=== PATIENT | female | born 1990 | race African-American/Black ===

== ENCOUNTER → 2016-11-28 | Outpatient (CLI) | payer MEDICAID ==
[~2016-11-28] VITALS: Ht 175.3 cm; Wt 165.1 kg
[~2016-11-28] MED LIST: GLUCOPHAGE500 MG/TAB PO
[2016-11-28 09:40] VITALS: BP 124/61; PULSE 76
[2016-11-28 11:09] VITALS: BP 124/61; PULSE 76
[2016-11-28 11:45] VITALS: BP 124/61; PULSE 76
== END ==
LOC: LIGHT 09:30
DX: E11.9 Type 2 diabetes mellitus without complications (principal); F32.89 Other specified depressive episodes; E66.01 Morbid (severe) obesity due to excess calories; Z68.43 Body mass index [BMI] 50.0-59.9, adult; M54.5 Low back pain

== ENCOUNTER → 2016-12-04 | Outpatient (CLI) | payer MEDICAID ==
[~2016-12-04] VITALS: Ht 175.3 cm; Wt 165.6 kg
== END ==
LOC: LIGHT 08:44
DX: E11.9 Type 2 diabetes mellitus without complications (principal); F32.89 Other specified depressive episodes; E66.01 Morbid (severe) obesity due to excess calories; Z68.43 Body mass index [BMI] 50.0-59.9, adult; M54.5 Low back pain

== ENCOUNTER → 2016-12-26 | Outpatient (CLI) | payer MEDICAID ==
[~2016-12-26] VITALS: Ht 175.3 cm; Wt 165.6 kg
[2016-12-26 14:02] VITALS: BP 152/81; PULSE 76
[2016-12-26 17:12] VITALS: BP 152/81; PULSE 76
== END ==
LOC: LIGHT 14:00
DX: E11.9 Type 2 diabetes mellitus without complications (principal); F32.89 Other specified depressive episodes; E66.01 Morbid (severe) obesity due to excess calories; Z68.43 Body mass index [BMI] 50.0-59.9, adult; M54.5 Low back pain

== ENCOUNTER → 2017-01-23 | Outpatient (CLI) | payer MEDICAID ==
[~2017-01-23] VITALS: Ht 175.3 cm; Wt 163.7 kg
[2017-01-23 14:40] VITALS: BP 125/67; PULSE 75
== END ==
LOC: LIGHT 13:40
DX: E11.9 Type 2 diabetes mellitus without complications (principal); F32.89 Other specified depressive episodes; E66.01 Morbid (severe) obesity due to excess calories; Z68.43 Body mass index [BMI] 50.0-59.9, adult

== ENCOUNTER → 2017-02-01 | Outpatient (CLI) | payer MEDICAID | LOC: LIGHT 12:35 | DX: E11.9 Type 2 diabetes mellitus without complications (principal); M54.5 Low back pain; F32.89 Other specified depressive episodes; E66.01 Morbid (severe) obesity due to excess calories; Z68.43 Body mass index [BMI] 50.0-59.9, adult ==

== ENCOUNTER → 2017-02-20 | Outpatient (CLI) | payer MEDICAID ==
[~2017-02-20] VITALS: Ht 175.3 cm; Wt 163.3 kg
[2017-02-20 15:18] VITALS: BP 138/75; PULSE 55
== END ==
LOC: LIGHT 15:00
DX: E11.9 Type 2 diabetes mellitus without complications (principal); F32.89 Other specified depressive episodes; E66.01 Morbid (severe) obesity due to excess calories; Z68.43 Body mass index [BMI] 50.0-59.9, adult; M54.5 Low back pain; Z90.49 Acquired absence of other specified parts of digestive tract

== ENCOUNTER → 2017-03-27 | Outpatient (CLI) | payer MEDICAID ==
[~2017-03-27] VITALS: Ht 175.3 cm; Wt 165.3 kg
[2017-03-27 15:04] VITALS: BP 118/55; PULSE 71
== END ==
LOC: LIGHT 09:59
DX: E11.9 Type 2 diabetes mellitus without complications (principal); F32.89 Other specified depressive episodes; E66.01 Morbid (severe) obesity due to excess calories; Z68.43 Body mass index [BMI] 50.0-59.9, adult; M54.5 Low back pain

== ENCOUNTER → 2017-04-30 | Outpatient (CLI) | payer MEDICAID ==
[~2017-04-30] VITALS: Ht 175.3 cm; Wt 166.5 kg
[2017-04-30 17:09] VITALS: BP 126/67; PULSE 69
== END ==
LOC: LIGHT 11:41
DX: E11.9 Type 2 diabetes mellitus without complications (principal); F32.89 Other specified depressive episodes; E66.01 Morbid (severe) obesity due to excess calories; Z68.43 Body mass index [BMI] 50.0-59.9, adult; Z71.3 Dietary counseling and surveillance; M54.5 Low back pain

== ENCOUNTER 2017-07-31 14:06 | Inpatient (IN) | payer MEDICAID ==
[~2017-07-31] VITALS: Ht 175.3 cm; Wt 167.0 kg
[2017-08-15] VITALS (9 sets, daily range): BP systolic 103–164; BP diastolic 56–90; PULSE 55–89; TEMP 97.8–98.9
[2017-08-15] MEDS ORDERED: BIOTIN10000 MC1 PO (12:05)
[2017-08-16 02:03] VITALS: BP 121/34; PULSE 50; TEMP 98.3
[2017-08-16 05:54] VITALS: BP 130/60; PULSE 68; TEMP 98.7
[2017-08-16 09:23] VITALS: PULSE 76; TEMP 98.9
[2017-08-16 09:25] VITALS: BP 126/73
[2017-08-16 14:57] VITALS: BP 138/79; PULSE 86; TEMP 99.2
[2017-08-20] MEDS ORDERED: PRENATAL FORMU1 EAC3 PO (17:48)
== END 2017-08-16 18:15 | disposition home or self-care (01) | DRG 621 ==
LOC: SURG 08-15 10:51 → INPTSU 08-15 10:51 → SURG 08-15 13:30
PROVIDERS: Surgery
PROC: 0DB64Z3 Excision of Stomach, Percutaneous Endoscopic Approach, Vertical (ICD-10-PCS; principal; 2017-08-15 13:30)
DX: E66.01 Morbid (severe) obesity due to excess calories (principal); Z68.43 Body mass index [BMI] 50.0-59.9, adult; E11.9 Type 2 diabetes mellitus without complications; Z79.4 Long term (current) use of insulin; Z79.84 Long term (current) use of oral hypoglycemic drugs
CPT/HCPCS: A9284; J0330; J0360; J0690; J1100; J1170; J1885; J2405; J2550; J2704; J2710; J7120

== ENCOUNTER → 2017-08-07 | Outpatient (CLI) | payer MEDICAID ==
[~2017-08-07] MED LIST changes: +BIOTIN10000 MC1 PO; +PRENATAL FORMU1 EAC3 PO
== END ==
LOC: LIGHT 12:08
DX: Z01.818 Encounter for other preprocedural examination (principal); E66.01 Morbid (severe) obesity due to excess calories; E11.9 Type 2 diabetes mellitus without complications

== ENCOUNTER → 2017-08-13 | Outpatient (CLI) | payer MEDICAID | LOC: LIGHT 08:26 | DX: Z01.818 Encounter for other preprocedural examination (principal); E66.01 Morbid (severe) obesity due to excess calories; E11.9 Type 2 diabetes mellitus without complications ==

== ENCOUNTER → 2017-08-20 | Outpatient (CLI) | payer MEDICAID ==
[~2017-08-20] VITALS: Ht 175.3 cm; Wt 160.6 kg
[2017-08-20 15:52] VITALS: BP 110/74; PULSE 100
== END ==
LOC: LIGHT 09:07
DX: E11.9 Type 2 diabetes mellitus without complications (principal); F32.89 Other specified depressive episodes; E66.01 Morbid (severe) obesity due to excess calories; Z68.43 Body mass index [BMI] 50.0-59.9, adult; Z71.3 Dietary counseling and surveillance; M54.5 Low back pain

== ENCOUNTER → 2017-09-17 | Outpatient (CLI) | payer MEDICAID ==
[~2017-09-17] VITALS: Ht 175.3 cm; Wt 152.9 kg
[~2017-09-17] MED LIST changes: +PRENATAL PO
[2017-09-17 15:29] VITALS: BP 120/70; PULSE 68
== END ==
LOC: LIGHT 10:12
DX: E11.9 Type 2 diabetes mellitus without complications (principal); F32.89 Other specified depressive episodes; E66.01 Morbid (severe) obesity due to excess calories; Z68.42 Body mass index [BMI] 45.0-49.9, adult; Z71.3 Dietary counseling and surveillance; M54.5 Low back pain

== ENCOUNTER → 2018-01-07 | Outpatient (CLI) | payer MEDICAID ==
[~2018-01-07] VITALS: Ht 175.3 cm; Wt 129.5 kg
[2018-01-07 16:57] VITALS: BP 104/64; PULSE 72
== END ==
LOC: LIGHT 11-26 09:33
DX: E11.9 Type 2 diabetes mellitus without complications (principal); F32.89 Other specified depressive episodes; E66.01 Morbid (severe) obesity due to excess calories; Z68.41 Body mass index [BMI] 40.0-44.9, adult; Z71.3 Dietary counseling and surveillance; M54.5 Low back pain
CPT/HCPCS: G0463

== ENCOUNTER 2018-03-19 16:35 | Emergency (ER) | payer SELFPAY ==
[~2018-03-19] VITALS: Ht 180.3 cm; Wt 116.4 kg
[2018-03-19 16:43] VITALS: BP 117/64; TEMP 98.3
[2018-03-19 19:07] VITALS: PULSE 55
== END 2018-03-19 19:09 | disposition home or self-care (01) ==
LOC: COL.ER 16:35
DX: R07.89 Other chest pain (principal); F17.210 Nicotine dependence, cigarettes, uncomplicated; Z98.890 Other specified postprocedural states; Z90.49 Acquired absence of other specified parts of digestive tract; X50.0XXA Overexertion from strenuous movement or load, initial encounter
CPT/HCPCS: J1885

== ENCOUNTER 2018-03-24 17:45 | Emergency (ER) | payer SELFPAY ==
[~2018-03-24] VITALS: Ht 180.3 cm; Wt 120.5 kg
[2018-03-24 17:51] VITALS: BP 126/64; TEMP 97.2
[2018-03-24 18:53] VITALS: PULSE 57
== END 2018-03-24 18:53 | disposition home or self-care (01) ==
LOC: COL.ER 17:45
DX: R07.9 Chest pain, unspecified (principal); X50.0XXA Overexertion from strenuous movement or load, initial encounter; Y92.89 Other specified places as the place of occurrence of the external cause; Y99.0 Civilian activity done for income or pay
CPT/HCPCS: J1885

== ENCOUNTER 2018-03-26 08:05 | Outpatient (RCR) | payer OTHER | END 2018-03-27 14:59 | disposition home or self-care (01) | LOC: WSOH 08:05 | DX: K21.9 Gastro-esophageal reflux disease without esophagitis (principal); F17.210 Nicotine dependence, cigarettes, uncomplicated ==

== ENCOUNTER 2018-05-08 19:34 | Emergency (ER) | payer MEDICAID ==
[~2018-05-08] VITALS: Ht 182.9 cm; Wt 115.0 kg
[2018-05-08 19:46] VITALS: BP 126/88; TEMP 98.3
[2018-05-08 21:33] VITALS: PULSE 64
== END 2018-05-08 21:33 | disposition home or self-care (01) ==
LOC: COL.ER 19:34
DX: J20.9 Acute bronchitis, unspecified (principal); E11.9 Type 2 diabetes mellitus without complications; F17.210 Nicotine dependence, cigarettes, uncomplicated; Z90.49 Acquired absence of other specified parts of digestive tract; Z98.890 Other specified postprocedural states
CPT/HCPCS: J8540

== ENCOUNTER 2019-02-09 15:38 | Emergency (ER) | payer MEDICAID ==
[~2019-02-09] VITALS: Ht 177.8 cm; Wt 113.6 kg
[~2019-02-09 15:38] MED LIST changes: +BACTRIM DS 8001 TAB PO; +CEPHALEXIN500 M1 PO
[2019-02-09 15:57] VITALS: TEMP 99.8
[2019-02-09] MEDS ORDERED: PRENATAL 191 TAB PO (16:09)
[2019-02-09 16:58] LABS: BASO % 0.4 % (0.0-2.0); EOS # 0.1 (0.0-0.7); EOS % 1.6 % (0-4.0); GRAN # 2.5 (1.4-6.5); GRAN % 50.3 % (42.2-75.2); HEMATOCRIT 37.3 % (37.0-47.0); INR 1.1 (0.8-3.0); LYMPH # 2.1 (1.2-3.4); LYMPH % 41.7 % (20.0-51.0); MEAN CELL VOLUME 80 fl (80.0-100.0); MEAN CORPUSCULAR HEMOGLOBIN 26 pg (27.0-31.0); MEAN CORPUSCULAR HGB CONC 32 g/dl (33.0-37.0); MEAN PLATELET VOLUME 9.9 fl (7.4-10.4); MONO # 0.3 (0.1-0.6); MONO % 5.8 % (1.7-9.3); PLATELET COUNT 352 K/mm3 (130-400); PROTHROMBIN TIME 12.7 SECONDS (9.7-12.8); RED BLOOD COUNT 4.64 M/mm3 (4.10-5.30); REDCELL DISTRIBUTION WIDTH-CV 13.2 % (11.5-14.5)
[2019-02-09 17:04] LABS: ALANINE AMINOTRANSFERASE < 6 U/L (9-52); ALBUMIN 3.7 gm/dL (3.5-5.0); ALKALINE PHOSPHATASE 111 U/L (50-136); ANION GAP 6 mmol/L (7-16); AST,SGOT 17 U/L (15-37); BILIRUBIN,TOTAL 0.5 mg/dL (0.0-1.0); BLOOD UREA NITROGEN 13 mg/dL (7-17); CARBON DIOXIDE 26 mmol/L (22-30); CHLORIDE 107 mmol/L (98-107); CREATININE, serum 0.82 mg/dL (0.52-1.25); GLUCOSE 109 mg/dL (74-106); LACTATE DEHYDROGENASE 354 U/L (313-618); POTASSIUM 3.7 mmol/L (3.4-5.0); SODIUM 139 mmol/L (137-145); TOTAL PROTEIN 7.6 gm/dL (6.4-8.2)
[2019-02-09 17:09] LABS: C-REACTIVE PROTEIN < 0.5 mg/dL (0.0-0.9)
[2019-02-09 17:20] LABS: ERYTHROCYTE SEDIMENTATION RATE 11 mm/hr (0-20)
[2019-02-09] MEDS ORDERED: CRUTCHES MC (17:41)
[2019-02-09 18:02] VITALS: BP 122/81; PULSE 60
== END 2019-02-09 18:02 | disposition home or self-care (01) ==
LOC: COL.ER 15:38
PROVIDERS: Emergency Medicine
DX: D49.2 Neoplasm of unspecified behavior of bone, soft tissue, and skin (principal); F17.210 Nicotine dependence, cigarettes, uncomplicated; Z98.890 Other specified postprocedural states
CPT/HCPCS: L1846

== ENCOUNTER 2019-03-28 10:46 | Day surgery (SDC) | payer MEDICAID ==
[~2019-03-28] VITALS: Ht 176.5 cm; Wt 111.4 kg
[2019-03-28] VITALS (9 sets, daily range): BP systolic 119–137; BP diastolic 63–85; PULSE 60–77; TEMP 98.1
--- NOTE | 2019-03-28 08:45 | NUR ---
Returns to room 1 per cart from PACU and is awake and alert. Temp 97.2 and room air sats 93%. IV fluids infusing via 18G RH and site is free of redness. Siderails up x2 and call light in reach. States that she is sleepy and wishes to sleep. Family at side. Allowed to rest.
--- NOTE | 2019-03-28 09:00 | NUR ---
Continues to rest when not disturbed. IV fluids infusing.
--- NOTE | 2019-03-28 09:15 | NUR ---
Drinking water and denies pain.
--- NOTE | 2019-03-28 09:30 | NUR ---
Room air sats 93%. Drinking water and denies need for pain medication.
[~2019-03-28 10:46] MED LIST changes: +CRUTCHES MC; +PRENATAL 191 TAB PO
--- NOTE | 2019-03-28 11:20 | NUR ---
Initial visit; Patient thanked Sterile Supervisor for offering encouragement and prayer prior to her surgical procedure.
[2019-03-28] MEDS ORDERED: VITAMIN B12 781 TAB PO (11:22)
[2019-03-28] MEDS ORDERED: FEOSOL45 MG PO (11:23)
[2019-03-28] MEDS ORDERED: VITAMIN D3400 I1 PO (11:23)
--- NOTE | 2019-03-28 13:28 | NUR ---
Patient returns to room 4 per cart from surgery after having double lumen livingston catheter placed. Site is free of redness. Temp 97.8 and room air sats 99%. IV fluids infusing and site is free of redness. Siderails up x2 and call light in reach. Patient is eating muffin and drinking coke. Denies nausea.
--- NOTE | 2019-03-28 13:43 | NUR ---
Resting and talking with family.
[2019-03-28] MEDS ORDERED: MOTRIN 600600 MG/TAB PO ×2 (13:45→13:58)
[2019-03-28] MEDS ORDERED: PERCOCET 325 MG1 TA2 PO (13:45)
[2019-03-28] MEDS ORDERED: COLACE 100100 MG/CAP PO (13:46)
--- NOTE | 2019-03-28 13:58 | NUR ---
Resting and room air sats 98%. Johns site free of drainage or swelling. Tegaderm dressing dry and intact.
--- NOTE | 2019-03-28 14:13 | NUR ---
Assisted up to the bathroom and uses crutches to ambulate. Patient is non weigth bearing on the left leg. Gait steady with crutches.
--- NOTE | 2019-03-28 14:30 | NUR ---
IV discontinued and has been sipping on Coke.
--- NOTE | 2019-03-28 14:54 | NUR ---
Follow-up visit; Patient out of 'Procedure' and doing well. Thanked Tobacco Checkout Clerk for looking in on her again and wishing her well.
--- NOTE | 2019-03-28 14:55 | NUR ---
Given dismissal instructions and voices understanding of these. Provided office number for any questions or concerns.
--- NOTE | 2019-03-28 15:00 | NUR ---
Able to dress self and double lumen catheter insertion site remains dry and no drainage noted.
--- NOTE | 2019-03-28 15:10 | NUR ---
Patient dismissed to home per private vehicle driven by mother with instructions in hand. Taken to the front door per wheelchair and assisted into car by RN.
== END 2019-03-28 15:10 | disposition home or self-care (01) ==
LOC: SDCO 10:46
DX: C40.22 Malignant neoplasm of long bones of left lower limb (principal); E11.9 Type 2 diabetes mellitus without complications; Z90.49 Acquired absence of other specified parts of digestive tract; Z87.891 Personal history of nicotine dependence; K21.9 Gastro-esophageal reflux disease without esophagitis; F41.9 Anxiety disorder, unspecified; Z91.018 Allergy to other foods
CPT/HCPCS: C1750; J0690; J1644; J2250; J2704; J3010; J7030